=== PATIENT | male | born 1975 ===

== ENCOUNTER 2016-10-08 18:48 | Emergency (ER) | payer OTHER ==
[2016-10-08] MEDS ORDERED: Sodium Chloride 0.9% 1,000 ML IV STA (19:18)
--- NOTE | 2016-10-08 19:27 | ED PDOC ---
HPI: Psych/Substance Abuse Time Seen by Provider: 10/08/16 18:57 Chief Complaint (Nursing): Psychiatric Evaluation Chief Complaint (Provider): anxiety Additional Complaint(s): Severely anxious for 1 day Pt reports on Thursday night he was taken by car to someone's home and in its basement he was injected with IV drugs, unknown which ones. He was there for over 2 days. He was dropped off at a park today and he went to the police to report this and he was advised to come to ER for further evaluation. He admits that he drinks occasionally and uses marijuana occasionally. He does not regularly use IV drugs. In the past he has used cocaine but has not recently. Denies any pain. +H/o HIV, [place] [facility] [place] Medical History Reviewed: Historical Data, Nursing Documentation, Vital Signs Vital Signs: Last Vital Signs Temp 99.1 F 10/08/16 18:51 Pulse 123 H 10/08/16 18:51 Resp 18 10/08/16 18:51 BP 149/101 H 10/08/16 18:51 Pulse Ox 97 10/08/16 18:51 - Medical History PMH: HIV - Surgical History Surgical History: No Surg Hx - Family History Family History: States: Unknown Family Hx - Social History Current smoker - smoking cessation education provided: Yes Alcohol: Occasional Drugs: Cannabis, Cocaine - Allergies Allergies/Adverse Reactions: Allergies Allergy/AdvReac Type Severity Reaction Status Date / Time No Known Allergies Allergy Verified 10/08/16 18:51 Review of Systems ROS Statement: Except As Marked, All Systems Reviewed And Found Negative (and as per HPI) Constitutional: Positive for: Chills, Malaise Neurological: Positive for: Other (shakiness) Psych: Positive for: Anxiety. Negative for: Psychosis, Suicidal ideation Physical Exam - Reviewed Nursing Documentation Reviewed: Yes Vital Signs Reviewed: Yes - Physical Exam Appears: Positive for: In Acute Distress Head Exam: Positive for: ATRAUMATIC, NORMOCEPHALIC Skin: Positive for: Warm, Dry Eye Exam: Positive for: EOMI, PERRL, Conjunctival injection ENT: Positive for: Other (tacky muc memb). Negative for: Pharyngeal Erythema, Tonsillar Exudate Neck: Positive for: Painless ROM, Supple Cardiovascular/Chest: Negative for: Murmur, Tachycardia (reg rhythm) Respiratory: Positive for: Normal Breath Sounds. Negative for: Respiratory Distress Gastrointestinal/Abdominal: Positive for: Soft. Negative for: Tenderness Back: Positive for: Normal Inspection. Negative for: Muscle Spasm Extremity: Positive for: Normal ROM, Other (L forearm: pinpoint lesions on skin c/w needlestick). Negative for: Deformity Lymphatic: Negative for: Adenopathy Neurologic/Psych: Positive for: Alert, Mood/Affect (anxious affect). Negative for: Motor/Sensory Deficits - Laboratory Results Result Diagrams: 10/08/16 19:18 10/08/16 19:18 - ECG O2 Sat by Pulse Oximetry: 97 Pulse Ox Interpretation: Normal Medical Decision Making Medical Decision Making: Evaluated by orchard worker who reports that on further questioning , pt admits to remembering using IV "sadie" ( slang for Crystal Meth), which he says he does not use regularly. He also denies going to police at all and saying he went home, but sister at home denies pt was ever at home. Pt has no desire to talk to police. Cleared by crisis after d/w psychiatrist. Drug abuse education given. Also stressed importance of avoiding any needle sharing given his h/o HIV and endangerment to others. Disposition - Clinical Impression Clinical Impression: Methamphetamine abuse Counseled Patient/Family Regarding: Studies Performed, Diagnosis, Need For Followup - Disposition Disposition: Routine/Home Disposition Time: 22:00 Condition: IMPROVED Additional Instructions: NO [place] DROGAS Instructions: Dehydration (ED), Methamphetamine Abuse (ED) Print Language: ANGUILLAN
[2016-10-08 19:36] LABS: BASO # 0.1 K/uL (0.0-0.2); BASO % 1.1 % (0.0-2.0); EOS # 0.1 K/uL (0.0-0.7); EOS % 2.5 % (0.0-4.0); LYMPH # 0.9 K/uL (1.0-4.3); LYMPH % 17.9 % (20.0-40.0); MEAN CELL VOLUME 97.5 fl (80.0-94.0); MEAN CORPUSCULAR HEMOGLOBIN 34.4 pg (27.0-31.0); MEAN CORPUSCULAR HGB CONC 35.3 g/dL (33.0-37.0); MEAN PLATELET VOLUME 8.6 fl (7.2-11.7); MONO # 0.6 K/uL (0.0-0.8); NEUT # 3.4 K/uL (1.8-7.0); NEUT % 67.5 % (50.0-75.0); WHITE BLOOD COUNT 5.1 K/uL (4.8-10.8)
[2016-10-08 20:17] LABS: ALB/GLOB RATIO 1.6 (1.0-2.1); ALCOHOL SERUM < 10 mg/dl (0-10); ALKALINE PHOSPHATASE 96 U/L (38-126); ALT/SGPT 99 U/L (21-72); AST/SGOT 103 U/L (17-59); BILIRUBIN,TOTAL 0.9 mg/dl (0.2-1.3); BLOOD UREA NITROGEN 14 mg/dl (9-20); CALCIUM 10.6 mg/dL (8.4-10.2); CARBON DIOXIDE 18 mmol/L (22-30); CHLORIDE 106 mmol/L (98-107); GFR AFRICAN-AMERICAN > 60; GLUCOSE,RANDOM 99 mg/dL (75-110); MAGNESIUM 2.3 MG/DL (1.6-2.3); PHOSPHOROUS 1.6 mg/dl (2.5-4.5); POTASSIUM 3.4 MMOL/L (3.6-5.0); SODIUM 137 mmol/l (132-148); TOTAL PROTEIN 7.9 G/DL (6.3-8.2)
[2016-10-08 22:46] VITALS: BP 115/90; PULSE 71; RESP 16; TEMP 98.3
[2016-10-08 23:19] VITALS: O2SAT 97
--- NOTE | 2016-10-09 10:43 | CARD ---
APPROVED REPORT EKG Measurement Heart [id number] <Conclusion> Normal sinus rhythm ST & T wave abnormality, consider anterolateral ischemia Abnormal ECG
== END 2016-10-09 00:23 | disposition home or self-care (01) ==
LOC: H.ER 18:48
DX: F15.10 Other stimulant abuse, uncomplicated (principal); F41.9 Anxiety disorder, unspecified